=== PATIENT | female | born 1950 | race Caucasian/White ===

== ENCOUNTER 2024-06-19 21:35 | Emergency (ER) | payer MEDICARE ==
--- NOTE | 2024-06-19 21:38 | ERPHSYRPT ---
- History of Present Illness Time Seen by Provider: 06/19/24 21:38 Historian: patient, family Exam Limitations: no limitations Physician History: This is a 74-year-old white female patient who has never been seen in this emergency department the past and presents with right mid abdominal pain and associated vomiting. Patient states that for 3 days she has had constipation. Today, approximately 1500, the patient had sudden onset of severe abdominal pain and vomiting. She has had a surgery in the past for relief of a bowel obstruction. This feels the same to her. The pain is sharp and level is 10 out of 10 intensity. The bowel obstruction required bowel resection. Patient has had a hysterectomy in the past and an appendectomy. She still has her gallbladder in place. Patient has a history of gastroesophageal reflux disease, hypertension, hypothyroidism and hyperlipidemia Timing/Duration: day(s) (Constipated for 3 days), sudden, other (Sudden onset right mid abdominal pain started at 1500 today) Activities at Onset: none Quality: sharpness Abdominal Pain Onset Location: periumbilical (To the right side) Pain Radiation: no radiation Severity of Pain-Max: moderate Severity of Pain-Current: moderate Modifying Factors: Improves With: vomiting (Time but large amount) Associated Symptoms: loss of appetite, nausea, vomiting, weakness, other, No chest pain Previous symptoms: same symptoms as today, no recent treatment Allergies/Adverse Reactions: cephalexin [From Keflex] Allergy (Verified 06/19/24 21:44) Anaphylactic Reaction Home Medications: Amlodipine Besylate 10 mg PO DAILY 06/19/24 [History] Citalopram Hydrobromide 20 mg* [ceLEXa 20 MG] 20 mg PO DAILY 06/19/24 [History] Levothyroxine Sodium 50 mcg PO DAILY 06/19/24 [History] Lisinopril 10 mg [Zestril 10 MG] 10 mg PO DAILY 06/19/24 [History] Metoprolol Tartrate 50 mg [Lopressor 50 MG] 50 mg PO DAILY 06/19/24 [History] Omeprazole 40 mg PO DAILY 06/19/24 [History] Pramipexole Di-HCl [Pramipexole Dihydrochloride] 0.5 mg PO DAILY 06/19/24 [History] Simvastatin 20Mg [Zocor 20Mg] 20 mg PO HS 06/19/24 [History] Travel Risk - International Travel Have you traveled outside of the country in past 3 weeks: No - Emerging Infectious Disease Are you exhibiting symptoms associated with any current EIDs: No - Review of Systems Constitutional: No Symptoms Eyes: No Symptoms Ears, Nose, & Throat: No Symptoms Respiratory: No Symptoms Cardiac: No Symptoms Abdominal/Gastrointestinal: Abdominal Pain, Nausea, Vomiting, Constipation, Appetite Changes Genitourinary Symptoms: No Symptoms Musculoskeletal: No Symptoms Skin: No Symptoms Neurological: No Symptoms Psychological: No Symptoms Endocrine: No Symptoms Hematologic/Lymphatic: No Symptoms Immunological/Allergic: No Symptoms All Other Systems: Reviewed and Negative - Past Medical History Pertinent Past Medical History: Yes - Past Surgical History Past Surgical History: Yes - Nursing Vital Signs Nursing Vital Signs: Initial Vital Signs Temperature 102.2 F 06/19/24 21:45 Pulse Rate 86 06/19/24 21:45 Respiratory Rate 20 06/19/24 21:45 Blood Pressure 169/74 06/19/24 21:45 O2 Sat by Pulse Oximetry 97 06/19/24 21:45 Pain Scale Pain Intensity 5 - Physical Exam General Appearance: mild distress (Moderate distress), alert, anxiety, obese Eye Exam: PERRL/EOMI, eyes nml inspection Ears, Nose, Throat Exam: normal ENT inspection, moist mucous membranes Neck Exam: normal inspection, non-tender, supple, full range of motion Respiratory Exam: normal breath sounds, lungs clear, airway intact, No chest tenderness, No respiratory distress Gastrointestinal/Abdomen Exam: soft, normal bowel sounds, tenderness, guarding (Right of mid abdomen), No distention Pelvic Exam: not done Rectal Exam: not done Back Exam: normal inspection, normal range of motion, No CVA tenderness, No vertebral tenderness Extremity Exam: normal inspection, normal range of motion, pelvis stable Neurologic Exam: alert, oriented x 3, cooperative, 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, sensation nml Skin Exam: normal color, warm, dry Lymphatic Exam: No adenopathy SpO2 Interpretation: normal O2 Delivery: Room Air - Course Nursing assessment & vital signs reviewed: Yes Ordered Tests: Active Orders 24 hr Category Date Time Status IV Insertion STAT Care 06/19/24 22:22 Active ABDOMEN AND PELVIS W/0 CONTRAS [CT] Stat Exams 06/19/24 22:22 Completed AMYLASE Stat Lab 06/19/24 22:23 Completed CBC W DIFF Stat Lab 06/19/24 22:23 Completed CMP Stat Lab 06/19/24 22:23 Completed CULTURE,URINE Stat Lab 06/19/24 22:23 Received LIPASE Stat Lab 06/19/24 22:23 Completed UA W/RFX UR CULTURE Stat Lab 06/19/24 22:23 Completed Medication Summary Generic Name Dose Route Start Last Admin Trade Name Freq PRN Reason Stop Dose Admin Levofloxacin/Dextrose 500 mg in 100 mls @ 100 mls/hr 06/19/24 23:01 06/19/24 23:05 Levofloxacin 500mg/100ml D5w IV 06/20/24 00:00 100 mls/hr STAT STA 100 mls/hr Administration Metronidazole 500 mg in 100 mls @ 200 mls/hr 06/19/24 23:49 Flagyl 500 Mg Ivpb IV 06/20/24 00:18 STAT STA Discontinued Medications Generic Name Dose Route Start Last Admin Trade Name Freq PRN Reason Stop Dose Admin Hydromorphone HCl 1 mg 06/19/24 22:22 06/19/24 22:28 Hydromorphone 1 Mg/1ml Inj IV 06/19/24 22:23 1 mg STAT ONE Administration Hydromorphone HCl Confirm 06/19/24 22:25 Hydromorphone 1 Mg/1ml Inj Administered 06/19/24 22:26 Dose 1 mg .ROUTE .STK-MED ONE Sodium Chloride 1,000 mls @ 999 mls/hr 06/19/24 22:22 06/19/24 23:41 Sodium Chloride 0.9% 1000 Ml IV 06/19/24 23:22 Infused .Q1H1M STA Infusion Sodium Chloride Confirm 06/19/24 22:25 Sodium Chloride 0.9% 1000 Ml Administered 06/19/24 22:26 Dose 1,000 mls @ ud .ROUTE .STK-MED ONE Levofloxacin/Dextrose Confirm 06/19/24 23:05 Levofloxacin 500mg/100ml D5w Administered 06/19/24 23:06 Dose 500 mg in 100 mls @ ud IV .STK-MED ONE Ondansetron HCl 4 mg 06/19/24 22:22 06/19/24 22:28 Ondansetron Hcl 4 Mg/2 Ml Vial IV 06/19/24 22:23 4 mg STAT ONE Administration Ondansetron HCl Confirm 06/19/24 22:24 Ondansetron Hcl 4 Mg/2 Ml Vial Administered 06/19/24 22:25 Dose 4 mg .ROUTE .STK-MED ONE Lab/Rad Data: Laboratory Result Diagrams 06/19/24 22:23 06/19/24 22:23 Laboratory Results 06/19/24 06/19/24 06/19/24 Range/Units 22:23 22:23 22:23 WBC 12.4 H (3.98-10.04) x10^3/uL RBC 4.27 (3.93-5.22) x10^6/uL Hgb 11.7 (11.2-15.7) g/dL Hct 36.4 (34.1-44.9) % MCV 85.2 (79.4-94.8) fL MCH 27.4 (25.6-32.2) pg MCHC 32.1 L (32.2-35.5) g/dL RDW 13.7 (11.7-14.4) % Plt Count 258 (182-369) x10^3/uL MPV 11.2 (9.4-12.3) fL Gran % 80.5 H (34.0-71.1) % Immature Gran % (Auto) 0.3 (0.001-0.429) % Nucleat RBC Rel Count 0.0 (0.00-0.2) % Eos # (Auto) 0.10 (0.04-0.36) x10^3/uL Immature Gran # (Auto) 0.04 H (0.001-0.031) x10^3u/L Absolute Lymphs (auto) 1.23 (1.18-3.74) x10^3/uL Absolute Monos (auto) 1.02 H (0.24-0.86) x10^3/uL Absolute Nucleated RBC 0.00 (0.00-0.012) x10^3u/L Lymphocytes % 10.0 L (19.3-51.7) % Monocytes % 8.3 (4.7-12.5) % Eosinophils % 0.8 (0.7-5.8) % Basophils % 0.1 (0.1-1.2) % Absolute Granulocytes 9.96 H (1.56-6.13) x10^3/uL Basophils # 0.01 (0.01-0.08) x10^3/uL Sodium 139 (135-145) mmol/L Potassium 3.4 L (3.5-5.1) mmol/L Chloride 103 (98-107) mmol/L Carbon Dioxide 27 (22-30) mmol/L Anion Gap 12.2 (5-15) MEQ/L BUN 13 (7-17) mg/dL Creatinine 0.54 (0.52-1.04) mg/dL Estimated GFR 97.2 ML/MIN Glucose 167 H (74-106) mg/dL Calcium 9.2 (8.4-10.2) mg/dL Total Bilirubin 0.60 (0.2-1.3) mg/dL AST 23 (14-36) U/L ALT 20 (0-35) U/L Alkaline Phosphatase 114 (38-126) U/L Serum Total Protein 7.1 (6.3-8.2) g/dL Albumin 4.1 (3.5-5.0) g/dL Amylase 53 (30-110) U/L Lipase 86 (23-300) U/L Urine Color Yellow (Yellow) Urine Appearance Clear (Clear) Urine pH 5.5 (4.6-8.0) Ur Specific [place] 1.015 (1.005-1.030) Urine Protein 30 (Negative) Urine Glucose (UA) Negative (Negative) mg/dL Urine Ketones Negative (Negative) Urine Blood Moderate A (Negative) Urine Nitrite Negative (Negative) Urine Bilirubin Negative (Negative) Urine Urobilinogen 0.2 (0.2) mg/dL Ur Leukocyte Esterase Moderate A (Negative) U Hyaline Cast (Auto) NONE SEEN (0-2) /LPF Urine Microscopic RBC 0-2 (0-5) /HPF Urine Microscopic WBC 51-100 A (0-5) /HPF Ur Epithelial Cells None Seen (None Seen) /HPF Urine Bacteria Many A (None Seen) /HPF Urine Culture Reflexed YES (NO) - Progress Progress: improved, pain not gone completely Progress Note: 06/19/24 22:37 My medical decision making and the assignment of moderate complexity to this patient's medical issue today is based on review of the patient's past medical history, review the patient's medication list, review the patient drug allergy list, history present illness and physical findings on examination. The workup in this patient includes placement of intravenous line, infusion normal saline solution, infusion of Dilaudid, infusion of Zofran, amylase, lipase, urinalysis, CBC, CMP, CT scan of the abdomen pelvis without contrast. Differential diagnosis includes but is not limited to colitis, diverticulitis, bowel obstruction, pancreatitis, cholecystitis 06/19/24 23:50 I interpreted the patient's laboratory data results. Based on the laboratory data results, the patient does have leukocytosis, hematuria and urinary tract infection. CT scan of the abdomen pelvis without contrast was interpreted by the radiologist and I reviewed the impression. The impression states acute diverticulitis without evidence for perforation or abscess formation. Counseled pt/family regarding: lab results, diagnosis, rad results Medical Desision Making - Independent Historian Additional History obtained from: Spouse - Diagnostic Testing Diagnostic test were ordered, analyzed, and reviewed by me: Yes Radiological Interpretation: Reviewed by me, Teleradiologist Report - Risk of complications The pt has a mod risk of morbidity or mortality based on: Need for prescription drug management - Departure Departure Disposition: Home Clinical Impression: Sigmoid diverticulitis Condition: Stable Critical Care Time: No Referrals: WEI ESCOBAR MD [Primary Care Provider] - Follow up/PCP as directed Additional Instructions: Clear liquid diet only. May advance your diet only when your pain has completely resolved. Take your antibiotics and other medications as prescribed. Call your primary care physician later today, 06/20/2024 to make arrangements for follow-up appointment to be seen in the next 2 to 3 days. Return to the emergency department if symptoms worsen. Prescriptions: Ondansetron ODT 4 MG [Zofran Odt 4 mg] 4 mg PO Q6H PRN PRN #10 tablet PRN Reason: Vomiting Hydrocodone/APAP 5/325 [[place] 5/325 mg] 1 each PO Q8H PRN PRN #8 tablet MDD 3 PRN Reason: Pain Ciprofloxacin [Cipro 500 MG] 500 mg PO BID #14 tablet Metronidazole 500 mg [Flagyl 500 MG] 500 mg PO TID #21 tablet
[2024-06-19 22:01] VITALS: RESP 20; TEMP 102.2
[2024-06-19] MEDS ORDERED: Zofran 4 MG/2 ML VIAL ONE (22:24)
[2024-06-19] MEDS ORDERED: Sodium Chloride 0.9% 1000 ML 1,000 ML ONE (22:25)
[2024-06-19] MEDS ORDERED: Hydromorphone 1 mg/ml Injection ONE (22:25)
[2024-06-19] MEDS: Sodium Chloride 0.9% 1000 ML 1,000 ML IV STA (22:27)
[2024-06-19] MEDS: Zofran 4 MG/2 ML VIAL IV ONE (22:28)
[2024-06-19] MEDS: Hydromorphone 1 mg/ml Injection IV ONE (22:28)
[2024-06-19 22:29] LABS: Absolute Neutrophil Ct (ANC) 9.96 x10^3/uL (1.56-6.13); BASOPHIL % 0.1 % (0.1-1.2); Basophil (Absolute #) 0.01 x10^3/uL (0.01-0.08); Eosinophil % 0.8 % (0.7-5.8); Hematocrit 36.4 % (34.1-44.9); Hemoglobin 11.7 g/dL (11.2-15.7); IMMATURE GRAN # 0.04 x10^3u/L (0.001-0.031); IMMATURE GRAN % 0.3 % (0.001-0.429); Lymphocyte (Absolute #) 1.23 x10^3/uL (1.18-3.74); Mean Cell Volume 85.2 fL (79.4-94.8); Mean Corpuscular Hemoglobin 27.4 pg (25.6-32.2); Mean Corpuscular Hgb Concent. 32.1 g/dL (32.2-35.5); Mean Platelet Volume 11.2 fL (9.4-12.3); Monocyte (Absolute #) 1.02 x10^3/uL (0.24-0.86); Monocytes % 8.3 % (4.7-12.5); Neutrophil % 80.5 % (34.0-71.1); Platelet Count 258 x10^3/uL (182-369); Red Blood Count 4.27 x10^6/uL (3.93-5.22); Red Cell Distribution Width 13.7 % (11.7-14.4); White Blood Count 12.4 x10^3/uL (3.98-10.04)
[2024-06-19 22:35] LABS: ALBUMIN 4.1 g/dL (3.5-5.0); ANION GAP 12.2 MEQ/L (5-15); BILIRUBIN,TOTAL 0.6 mg/dL (0.2-1.3); Calcium 9.2 mg/dL (8.4-10.2); Creatinine 1 0.54 mg/dL (0.52-1.04); EST GLOMERULAR FILTRATION RATE 97.2 ML/MIN; Potassium 3.4 mmol/L (3.5-5.1); Total Protein 7.1 g/dL (6.3-8.2)
[2024-06-19 22:40] LABS: Appearance Clear (Clear); Bacteria Many /HPF (None Seen); Bilirubin Negative (Negative); Blood Moderate (Negative); Epithelial Cells None Seen /HPF (None Seen); Glucose, Urine Negative (Negative); Hyaline Casts NONE SEEN /LPF (0-2); Ketones Negative (Negative); Leukocyte Esterase Moderate (Negative); Nitrite Negative (Negative); Ph 5.5 (4.6-8.0); Protein,Urine Dip 30 (Negative); RBC 0-2 /HPF (0-5); Specific Gravity 1.015 (1.005-1.030); Urobilinogen 0.2 mg/dL (0.2); WBC 51-100 /HPF (0-5)
[2024-06-19 22:41] LABS: ADD URINE CULTURE? YES (NO)
[2024-06-19] MEDS: Levofloxacin 500MG/100ML D5W 500 MG/100 ML BAG IV STA (23:05)
[2024-06-19] MEDS ORDERED: Levofloxacin 500MG/100ML D5W 500 MG/100 ML BAG IV ONE (23:05)
--- NOTE | 2024-06-19 23:43 | XRAY ---
CLINICAL HISTORY: Right mid abdomen pain; vomiting COMPARISON: None. TECHNIQUE: CT scan of the abdomen and pelvis was performed without IV contrast. Coronal and sagittal reconstructive images were also obtained. One of the following dose reduction techniques was utilized for this exam: Automated exposure control, adjustment of the mA and/or kV according to patient size, and use of iterative reconstruction. CTDI: 8.87mGy; DLP: 480.96mGy-cm. FINDINGS: Sections of the lower thorax show minimal basal atelectatic changes. Abdomen: The liver is normal in size. No focal or diffuse parenchymal abnormality. The portal vein, intrahepatic biliary radicals and the bile ducts are normal. The gallbladder is normal. No pericholecystic collection or radio-dense calculi in the gall bladder. The spleen, pancreas, and adrenal glands are unremarkable. Bilateral parapelvic cysts were noted, the largest measuring 18 mm on left side. The kidneys are normal in size and shape. No calculi or hydronephrosis. Fecal loading of the colon was noted. The visualized small bowel loops are unremarkable. Surgical changes in the cecum and ileocecal junction, likely post appendectomy. Pelvis: Sigmoid diverticulosis was noted with mild surrounding fat stranding, representing acute diverticulitis. No evidence of abscess formation or perforation at present The urinary bladder is unremarkable. Post hysterectomy status. No evidence of pelvic lymphadenopathy. Degenerative changes in lumbar spine were noted. Grade II anterolisthesis of L5 over S1 with near complete obliteration of intervening intervertebral disc space. Bilateral L5 pars defect. IMPRESSION: 1. Sigmoid diverticulosis with mild surrounding fat stranding, representing acute diverticulitis. 2. No evidence of abscess formation or perforation at present. 3. Fecal loading of the colon, possible constipation. 4. Bilateral renal parapelvic cysts. [facility] ER was called at [phone] at 10:37 PM SENIOR PRIVATE CLIENT ADVISOR, 06/19/[address] Stovall was informed regarding the presence of Important Medical Findings in the report. Electronically Signed by: Abril Villeda MD. (06/19/2024 23:39:14 EDT)
[2024-06-19] MEDS ORDERED: FLAGYL 500 MG IVPB 500 MG/100 ML BAG IV ONE (23:54)
[2024-06-19] MEDS: FLAGYL 500 MG IVPB 500 MG/100 ML BAG IV STA (23:56)
[2024-06-20] MEDS ORDERED: NORCO 5/325 MG ONE (00:13)
[2024-06-20] MEDS: NORCO 5/325 MG PO ONE (00:15)
[2024-06-20 00:20] VITALS: PULSE 82
[2024-06-20 00:32] VITALS: BP 151/66; O2SAT 94
== END 2024-06-20 00:51 | disposition home or self-care (01) ==
LOC: ED 21:35
DX: K57.32 Diverticulitis of large intestine without perforation or abscess without bleeding (principal); R10.33 Periumbilical pain; R11.2 Nausea with vomiting, unspecified; I10 Essential (primary) hypertension; E78.5 Hyperlipidemia, unspecified; Z79.891 Long term (current) use of opiate analgesic; Z79.899 Other long term (current) drug therapy
CPT/HCPCS: 36000; 36415; 74176; 80053; 81001; 82150; 83690; 85025; 87077; 87086; 87186; 96360; 96365; 96367; 96374; 99284; J1170; J1956; J2405; A9270-GY